=== PATIENT | female | born 1985 | race Caucasian/White ===

== ENCOUNTER 2021-04-13 11:56 | Emergency (ER) | payer BC ==
[2021-04-13 13:15] LABS: HEMOGLOBIN 12.9 gm/dl (12.3-15.3); RED BLOOD COUNT 4.35 M/UL (4.00-5.10); WHITE BLOOD COUNT 7.1 K/UL (4.5-11.0)
[2021-04-13 14:05] LABS: BUN/CREATININE RATIO 20 (0-10)
== END 2021-04-13 15:45 | disposition home or self-care (01) ==
LOC: ER1 11:56
PROVIDERS: Nurse Practitioner
DX: U07.1 COVID-19 (principal)
CPT/HCPCS: 36600; 71045; 80048; 82803; 85025; 99285

== ENCOUNTER 2021-07-11 00:49 | Emergency (ER) | payer BC | END 2021-07-11 02:42 | disposition home or self-care (01) | LOC: ER1 00:49 | DX: G89.18 Other acute postprocedural pain (principal); M79.671 Pain in right foot | CPT/HCPCS: 99283 ==

== ENCOUNTER → 2021-10-13 | Outpatient (CLI) | payer BC | LOC: KOH-I 14:20 | DX: M25.571 Pain in right ankle and joints of right foot (principal); Z96.661 Presence of right artificial ankle joint; Z96.7 Presence of other bone and tendon implants | CPT/HCPCS: 73610 ==